=== PATIENT | female | born 1955 | race Hispanic/Latino ===

== ENCOUNTER 2021-02-09 21:53 | Emergency (ER) | payer SELFPAY ==
[2021-02-09] MEDS ORDERED: Iopamidol 370 76% 100 ML VIAL IV ONE (21:54)
[2021-02-09] MEDS ORDERED: Ondansetron PF 4 MG/2 ML Vial ONE (22:38)
[2021-02-09] MEDS ORDERED: Morphine 4 MG/ML VIAL ONE (22:38)
[2021-02-09] MEDS ORDERED: Sodium Chloride 0.9% 1,000 ML ONE (22:38)
[2021-02-09 22:40] LABS: Bilirubin Negative (Negative); Blood, Urine Negative (Negative); Clarity Clear (Clear); Glucose, Urine (Dipstick) Negative (Negative); Ketone, Urine Negative (Negative); Leukocyte Negative (Negative); Nitrite Negative (Negative); Protein, Urine (Dipstick) Negative (Neg-Trace); Specific Gravity, Urine 1.021 (1.002-1.036); Urobilinogen 0.2 mg/dL (Less than 2); pH, Urine 6.5 (5.0-9.0)
[2021-02-09 22:50] LABS: Anisocytosis SLIGHT = 6-15 cells (100X) (0-5/hpf); Band 9 % (5-11); Eosinophils 1 % (0-10); Hemoglobin 11.6 g/dL (12.0-16.0); Lymphocytes 15 % (21-51); MDiff Complete? YES; Mean Corpuscular HGB CONC 31.8 g/dL (32.0-36.0); Mean Corpuscular Volume 103.6 fL (78.0-98.0); Mean Platelet Volume 8.8 fL (7.4-10.4); Monocytes 3 % (0-10); Neutrophil 72 % (42-75); Platelet Count 232 thou/uL (130-400); Platelet Morphology Comment Appears Adequate; RBC Distribution Width 14.6 % (11.5-14.5); White Blood Cell (WBC) Count 7.5 thou/uL (4.8-10.8)
[2021-02-09 22:54] LABS: ALT (SGPT) 13 U/L (8-55); AST (SGOT) 20 U/L (5-34); Alkaline Phosphatase 98 U/L (40-110); Anion Gap 16 mmol/L (10-20); BUN (Urea Nitrogen) 27 mg/dL (9.8-20.1); Bilirubin, Total 0.4 mg/dL (0.2-1.2); Calc. Creatinine Clearance 0 mL/min (70-130); Calcium 10.1 mg/dL (7.8-10.44); Carbon Dioxide 25 mmol/L (23-31); Chloride 104 mmol/L (98-107); Globulin 4.3 g/dL (2.4-3.5); Glucose 115 mg/dL (80-115); Lipase 39 U/L (8-78); Protein, Total 8.3 g/dL (5.8-8.1); Sodium 141 mmol/L (136-145)
[2021-02-10] MEDS ORDERED: Ketorolac Tromethamine 30 MG/ML VIAL ONE (00:08)
== END 2021-02-10 00:28 | disposition home or self-care (01) ==
LOC: MADERS 21:53
DX: K80.20 Calculus of gallbladder without cholecystitis without obstruction (principal); E03.9 Hypothyroidism, unspecified; I10 Essential (primary) hypertension; M06.9 Rheumatoid arthritis, unspecified
CPT/HCPCS: 74177; 80053; 81003; 83605; 83690; 85025; 96374; 96375; J1885; J2270; J2405; J7050; Q9967